=== PATIENT | female | born 1955 | race Caucasian/White ===

== ENCOUNTER 2019-12-06 16:48 | Emergency (ER) | payer OTHER ==
[~2019-12-06] VITALS: Ht 152.4 cm; Wt 79.8 kg
[2019-12-06 16:57] VITALS: Ht 152.4 cm; Wt 79.8 kg
[2019-12-06 17:31] VITALS: BP 155/83
== END 2019-12-06 17:31 | disposition home or self-care (01) ==
LOC: ED 16:48
DX: L08.9 Local infection of the skin and subcutaneous tissue, unspecified (principal); M79.674 Pain in right toe(s); L53.9 Erythematous condition, unspecified; I10 Essential (primary) hypertension; E11.9 Type 2 diabetes mellitus without complications; E78.00 Pure hypercholesterolemia, unspecified